=== PATIENT | male | born 1955 | race Caucasian/White ===

== ENCOUNTER 2018-03-16 12:25 | Emergency (ER) | payer OTHER ==
[2018-03-16 13:46] LABS: Absolute Lymphocytes (CBC) 1.1 K/uL (0.7-4.9); Absolute Monocytes 1.2 K/uL (0.1-1.3); Absolute Neutrophil 10.9 K/uL (1.8-8.0); Basophils % 0.3 % (0-1.3); Eosinophils % 1.3 % (0-4.4); Hematocrit 46.1 % (39.6-49.0); Lymphocytes % 8.3 % (15.3-44.8); MCV 93.4 fL (80-100); MPV 8.9 fL (7.6-11.3); Monocytes % 8.8 % (3.3-12.3); RBC Red Blood Cell Count 4.94 M/uL (4.33-5.43)
[2018-03-16 13:54] LABS: Potassium 3.8 mmol/L (3.5-5.1)
[2018-03-16] MEDS ORDERED: MEPERIDINE HCL 25 MG/0.5 ML ONE (14:12)
--- NOTE | 2018-03-16 14:36 | RAD REPORT ---
EXAM DESCRIPTION: CT - Soft Tissue Neck W/Contr - 03/16/2018 2:13 pm CLINICAL HISTORY: Neck pain and swelling, history of recent passage of salivary duct stones. TECHNIQUE: During dynamic enhancement using 100 milliliters nonionic IV contrast, axial 5 millimeter thick images of the neck were obtained. All CT scans are performed using dose optimization technique as appropriate and may include automated exposure control or mA/KV adjustment according to patient size. FINDINGS: A 5 millimeter calcification is present anterior left floor the mouth. Given the history i n finding this is most likely a Anny duct stone. There is thickening and edema of the soft tissues between the stone and the submandibular gland. The gland itself is not enlarged but does have conges tion or edema change along the capsular margin and surrounding fatty tissues. There is a mild overall congestion that extends out into the subcutaneous fatty tissues deep to the platysma. The Anny du ct is seen as dilated. A separate, drainable abscess or abnormal fluid collection is not identifiable . Small reactive lymph nodes are seen in the left-side of the neck. No other suspicious mass. IMPRESSION: Approximately 5 millimeter stone is present in the distal aspect left-side Warren duct with dilatation of the duct proximal to the stone as well is edematous/inflammatory changes to the so ft tissues between the stone and the left submandibular gland. No discrete or separate abscess or drainable fluid collections seen. Multiple reactive lymph nodes in the left-side of the neck.
[2018-03-16] MEDS ORDERED: MEPERIDINE HCL 50 MG/ML AMP ONE (15:12)
[2018-03-16] MEDS ORDERED: CLINDAMYCIN 600MG/D5W 600 MG/50 ML BAG IV ONE (15:12)
--- NOTE | 2018-03-16 16:11 | ER ---
Nurse's Notes [facility] Name: Delano Romero Age: 62 yrs Sex: Male : 1955 Arrival Date: 03/16/2018 Time: 12:31 Bed 19 Private MD: Diagnosis: Sialolithiasis Presentation: 03/16 12:31 Presenting complaint: Patient states: neck swelling started 2 weeks ago and was seen by sv his PCP and had an ultrasound done and told him to suck on lemon and then had instant relief after having "rocks" come out. Was given abx by his PCP but his neck swelling has increased. Transition of care: patient was not received from another setting of care. Onset of symptoms was February 2018. Care prior to arrival: None. 12:31 Method Of Arrival: Ambulatory sv 12:31 Acuity: JOSE ROBERTO 3 sv 16:18 Risk Assessment: Do you want to hurt yourself or someone else? Patient reports no aj desire to harm self or others. Initial Sepsis Screen: Does the patient meet any 2 criteria? No. Patient's initial sepsis screen is negative. Does the patient have a suspected source of infection? No. Patient's initial sepsis screen is negative. Historical: - Allergies: 12:34 PENICILLINS; sv 12:34 Celebrex; sv - Home Meds: 13:59 amlodipine 10 mg tab 1 tab once daily [Active]; clindamycin HCl 300 mg Oral cap every 6 aj hours [Active]; etodolac 500 mg Oral tab 1 tab 2 times per day [Active]; fluocinolone 0.01 % Topical soln 2 times per day [Active]; linagliptin oral 5 mg oral once daily [Active]; lisinopril-hydrochlorothiazide 20-25 mg oral tab 1 tab once daily [Active]; metformin 500 mg Oral tr24 1 tab once daily [Active]; naproxen 500 mg Oral tab 1 tab 2 times per day [Active]; nebivolol oral 10 mg oral 1 tab twice a day [Active]; pitavastatin oral 2 mg oral once daily [Active]; tramadol 50 mg Oral tab 1 tab every 6 hours [Active]; - PMHx: 12:34 Hypertension; Diabetes - NIDDM; High Cholesterol; shoulder; rib fx; sv - PSHx: 12:34 Knee surgery; legs; Tonsillectomy; sv - Immunization history:: Flu vaccine is not up to date. - Social history:: Smoking status: Patient uses tobacco products, smokes one pack cigarettes per day. - Ebola Screening: : No symptoms or risks identified at this time. - Family history:: not pertinent. - Hospitalizations: : No recent hospitalization is reported. Screenin:31 Abuse screen: Denies threats or abuse. Denies injuries from another. Nutritional aj screening: No deficits noted. Tuberculosis screening: No symptoms or risk factors identified. Fall Risk None identified. Assessment: 13:20 General: Appears in no apparent distress. uncomfortable, Behavior is calm, cooperative, aj appropriate for age. Pain: Complains of pain in submental area, right submandibular area and left submandibular area. Neuro: Level of Consciousness is awake, alert, obeys commands, Oriented to person, place, time, situation, Appropriate for age. Respiratory: Airway is patent Respiratory effort is even, unlabored, Respiratory pattern is regular, symmetrical. EENT: Throat swelling to chin . Derm: Skin is intact, is healthy with good turgor, Skin is pink, warm \\T\\ dry. normal. 16:16 Reassessment: Patient appears in no apparent distress at this time. No changes from aj previously documented assessment. Patient and/or family updated on plan of care and expected duration. Pain level reassessed. Patient is alert, oriented x 3, equal unlabored respirations, skin warm/dry/pink. Patient states feeling better. Patient states symptoms have improved. Vital Signs: 12:34 BP 138 / 88; Pulse 70; Resp 18; Temp 97.2; Pulse Ox 98% ; Weight 115.67 kg; Height 5 sv ft. 11 in. (180.34 cm); Pain 9/10; 13:48 BP 155 / 82; Pulse 69; Resp 17; Pulse Ox 94% on R/A; aj 15:15 BP 162 / 85; Pulse 69; Resp 17; Pulse Ox 93% on R/A; aj 16:16 BP 152 / 97; Pulse 75; Resp 19; Pulse Ox 94% on R/A; aj 12:34 Body Mass Index 35.56 (115.67 kg, 180.34 cm) sv ED Course: 12:31 Patient arrived in ED. sv 12:32 Triage completed. sv 12:34 Arm band placed on. sv 12:38 Candy Edwards, RN is Primary Nurse. aj 12:46 Darnell Mccullough MD is Attending Physician. rn 13:31 Patient has correct armband on for positive identification. aj 13:31 Inserted saline lock: 20 gauge in left antecubital area, using aseptic technique. Blood aj collected. 14:12 CT completed. Patient tolerated procedure well. Patient moved to CT via wheelchair. sj Patient moved back from CT. 14:12 CT Soft Tissue Neck W/contr In Process Unspecified. EDMS 16:16 No provider procedures requiring assistance completed. IV discontinued, intact, aj bleeding controlled, No redness/swelling at site. Pressure dressing applied. Administered Medications: 14:07 Drug: Demerol 25 mg Route: IVP; Site: left antecubital; aj 15:27 Follow up: Response: No adverse reaction aj 15:09 Drug: Clindamycin 600 mg Route: IVPB; Infused Over: 30 mins; Site: left antecubital; aj 16:18 Follow up: Response: No adverse reaction; IV Status: Completed infusion; IV Intake: 50mlaj 15:09 Drug: Demerol 50 mg Route: IVP; Site: left antecubital; aj 15:27 Follow up: Response: Pain is decreased aj Intake: 16:18 IV: 50ml; Total: 50ml. aj Outcome: 16:10 Discharge ordered by . rn 16:16 Discharged to home ambulatory, with family. aj 16:16 Condition: good 16:16 Discharge instructions given to patient, family, Instructed on discharge instructions, follow up and referral plans. medication usage, Demonstrated understanding of instructions, follow-up care, medications, Prescriptions given X 1. 16:21 Patient left the ED. aj Signatures: Dispatcher [employer] EDMS Karis Velez, RN Candy Daniels RN RN aj Jones, Susan sj Nieto, Roman, MD MD rn
--- NOTE | 2018-03-16 16:11 | EDPHYS ---
Physician Documentation [facility] Name: Delano Romero Age: 62 yrs Sex: Male : 1955 Arrival Date: 03/16/2018 Time: 12:31 Bed 19 Private MD: ED Physician Darnell Mccullough HPI: 03/16 13:31 This 62 yrs old Male presents to ER via Ambulatory with complaints of Neck rn Swelling. 13:31 This 62 yrs old Male presents to ER via Ambulatory with complaints of Neck rn Swelling. 13:31 The patient or guardian complains of pain, swelling. The symptoms are located on the rn left submandibular area and right submandibular area and submental area. Onset: The symptoms/episode began/occurred 2 week(s) ago. The pain does not radiate. Modifying factors: The symptoms are alleviated by nothing. the symptoms are aggravated by movement, pressure. The patient has not experienced similar symptoms in the past. Reports being treated for last 2 weeks for salivary stones, has passed a few, swelling has improved but not gone away, started on abx just yesterday at urgent care, sent here for further evaluation, has had u/s. No fever. Mild pain with swallowing, no trouble breathing.. Historical: - Allergies: 12:34 PENICILLINS; sv 12:34 Celebrex; sv - Home Meds: 13:59 amlodipine 10 mg tab 1 tab once daily [Active]; clindamycin HCl 300 mg Oral cap every 6 aj hours [Active]; etodolac 500 mg Oral tab 1 tab 2 times per day [Active]; fluocinolone 0.01 % Topical soln 2 times per day [Active]; linagliptin oral 5 mg oral once daily [Active]; lisinopril-hydrochlorothiazide 20-25 mg oral tab 1 tab once daily [Active]; metformin 500 mg Oral tr24 1 tab once daily [Active]; naproxen 500 mg Oral tab 1 tab 2 times per day [Active]; nebivolol oral 10 mg oral 1 tab twice a day [Active]; pitavastatin oral 2 mg oral once daily [Active]; tramadol 50 mg Oral tab 1 tab every 6 hours [Active]; - PMHx: 12:34 Hypertension; Diabetes - NIDDM; High Cholesterol; shoulder; rib fx; sv - PSHx: 12:34 Knee surgery; legs; Tonsillectomy; sv - Immunization history:: Flu vaccine is not up to date. - Social history:: Smoking status: Patient uses tobacco products, smokes one pack cigarettes per day. - Ebola Screening: : No symptoms or risks identified at this time. - Family history:: not pertinent. - Hospitalizations: : No recent hospitalization is reported. ROS: 13:31 Constitutional: Negative for fever, chills, and weight loss, Eyes: Negative for injury, rn pain, redness, and discharge, ENT: + submandibular swelling and pain Cardiovascular: Negative for chest pain, palpitations, and edema, Respiratory: Negative for shortness of breath, cough, wheezing, and pleuritic chest pain, Abdomen/GI: Negative for abdominal pain, nausea, vomiting, diarrhea, and constipation, MS/Extremity: Negative for injury and deformity, Skin: Negative for injury, rash, and discoloration, Neuro: Negative for headache, weakness, numbness, tingling, and seizure. Exam: 13:31 Constitutional: This is a well developed, well nourished patient who is awake, alert, rn and in no acute distress. ENT: + mild blood at opening of submandibular duct under tongue, + prominent swelling and firmness of submandibular and submental regions, soft floor of mouth, no stridor Neck: Trachea midline Vital Signs: 12:34 BP 138 / 88; Pulse 70; Resp 18; Temp 97.2; Pulse Ox 98% ; Weight 115.67 kg; Height 5 sv ft. 11 in. (180.34 cm); Pain 9/10; 13:48 BP 155 / 82; Pulse 69; Resp 17; Pulse Ox 94% on R/A; aj 15:15 BP 162 / 85; Pulse 69; Resp 17; Pulse Ox 93% on R/A; aj 16:16 BP 152 / 97; Pulse 75; Resp 19; Pulse Ox 94% on R/A; aj 12:34 Body Mass Index 35.56 (115.67 kg, 180.34 cm) sv MDM: 12:46 Patient medically screened. rn 16:08 Differential diagnosis: sialolithiasis. 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 Counseling: I had a detailed discussion with the patient and/or guardian regarding: the historical points, exam findings, and any diagnostic results supporting the discharge/admit diagnosis, lab results, radiology results, the need for outpatient follow up, to return to the emergency department if symptoms worsen or persist or if there are any questions or concerns that arise at home. Response to treatment: the patient's symptoms have markedly improved after treatment, and as a result, I will discharge patient. Special discussion: I discussed with the patient/guardian in detail that at this point there is no indication for admission to the hospital. It is understood, however, that if the symptoms persist or worsen the patient needs to return immediately for re-evaluation. Based on the history and exam findings, there is no indication for further emergent testing or inpatient evaluation. I discussed with the patient/guardian the need to see the ENT specialist for further evaluation of the symptoms. ED course: Pt with sialolithiasis, almost resolved, + reactive LAD, will dc home with ENT f/u, has appt already, recommend sucking on a lemon, and continue his clindamycin.. 03/16 12:56 Order name: CBC with Diff; Complete Time: 14:38 rn 03/16 12:56 Order name: Blood Culture Adult (2) rn 03/16 12:56 Order name: BMP; Complete Time: 14:38 rn 03/16 12:56 Order name: CT Soft Tissue Neck W/contr; Complete Time: 14:38 rn Administered Medications: 14:07 Drug: Demerol 25 mg Route: IVP; Site: left antecubital; aj 15:27 Follow up: Response: No adverse reaction aj 15:09 Drug: Clindamycin 600 mg Route: IVPB; Infused Over: 30 mins; Site: left antecubital; aj 16:18 Follow up: Response: No adverse reaction; IV Status: Completed infusion; IV Intake: 50mlaj 15:09 Drug: Demerol 50 mg Route: IVP; Site: left antecubital; aj 15:27 Follow up: Response: Pain is decreased aj Disposition: 03/16/18 16:10 Discharged to Home. Impression: Sialolithiasis. - Condition is Stable. - Discharge Instructions: Salivary Stone. - Prescriptions for Tylenol- Codeine #3 300-30 mg Oral Tablet - take 2 tablets by ORAL route every 6 hours As needed; 16 tablet. - Medication Reconciliation Form, Thank You Letter, Antibiotic Education, Prescription Opioid Use form. - Follow up: Private Physician; When: As needed; Reason: Recheck today's complaints, Re-evaluation by your physician. - Problem is an ongoing problem. - Symptoms have improved. Signatures: Dispatcher [employer] EDKaris Mueller, RN Candy Daniels RN RN aj Nieto, Roman, MD MD rn Corrections: (The following items were deleted from the chart) 16:21 16:10 03/16/2018 16:10 Discharged to Home. Impression: Sialolithiasis. Condition is aj Stable. Forms are Medication Reconciliation Form, Thank You Letter, Antibiotic Education, Prescription Opioid Use. Follow up: Private Physician; When: As needed; Reason: Recheck today's complaints, Re-evaluation by your physician. Problem is an ongoing problem. Symptoms have improved. rn
== END 2018-03-16 16:21 | disposition home or self-care (01) ==
LOC: ER 12:25
DX: K11.5 Sialolithiasis (principal); F17.200 Nicotine dependence, unspecified, uncomplicated
CPT/HCPCS: 36415; 70491; 80048; 85025; 87040; 96365; 96375; 99284; J2175; Q9967